=== PATIENT | female | born 1960 | race Native Hawaiian/Other Pacific Islander ===

== ENCOUNTER 2020-08-21 11:50 | Emergency (ER) | payer OTHER ==
[2020-08-21 12:08] VITALS: BP 152/86
[2020-08-21] MEDS ORDERED: traMADol 50 MG TAB PO ONE (15:18)
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
== END 2020-08-21 16:05 | disposition home or self-care (01) ==
LOC: ED 11:50
DX: M54.6 Pain in thoracic spine (principal); Z90.710 Acquired absence of both cervix and uterus; Z98.890 Other specified postprocedural states; V49.59XA Passenger injured in collision with other motor vehicles in traffic accident, initial encounter; W22.10XA Striking against or struck by unspecified automobile airbag, initial encounter; Y93.89 Activity, other specified; Y92.410 Unspecified street and highway as the place of occurrence of the external cause; Y99.8 Other external cause status
CPT/HCPCS: 99282